=== PATIENT | female | born 1970 | race Caucasian/White ===

== ENCOUNTER → 2018-12-16 | Outpatient (CLI) | payer OTHER ==
[2018-12-16] MEDS: LIDOCAINE 1% (MPF) 5 ML VIAL ×2 (11:11)
== END | disposition home or self-care (01) ==
LOC: U/S 09:21
DX: E04.1 Nontoxic single thyroid nodule (principal)
CPT/HCPCS: 10005; 88104; 88313; Z7610